=== PATIENT | female | born 1990 | race Caucasian/White ===

== ENCOUNTER 2019-05-21 22:33 | Inpatient (IN) ==
[2019-05-21 22:56] LABS: Appearance Urine Cloudy (Clear); Bacteria Urine Automated 1+ (Negative); Bilirubin Urine Negative (Negative); Blood Urine 1+ (Negative); Color Urine Yellow; Epithelial Cell Urine Auto >30 /lpf (0-5); Glucose Urine UA Negative (Negative); Ketones Urine Negative (Negative); Leukocyte Esterase Urine Trace (Negative); Nitrite Urine Negative (Negative); Protein Urine Negative (Negative); RBC Urine Automated 0-4 /hpf (0-4); Specific Gravity Urine 1.012 (1.000-1.030); Urobilinogen Urine Negative (Negative); pH Urine 5.5 (4.5-7.5)
[2019-05-21 23:11] LABS: Basophils # (auto) 0.03 K/uL (0-0.2); Basophils % (auto) 0.5 %; Eosinophils # (auto) 0.25 K/uL (0-0.5); Hematocrit (blood only) 41.5 % (37-47); Hemoglobin 14.1 g/dL (12.0-16.0); Lymphocytes # (auto) 1.35 K/uL (1.2-3.4); Lymphocytes % (auto) 21.6 %; Mean Corpuscular Hemoglobin 29.8 pg (25-34); Mean Corpuscular Volume 87.7 fL (80-100); Mean Platelet Volume 10.5 fL (7.4-10.4); Monocytes # (auto) 0.28 K/uL (0.11-0.59); Monocytes % (auto) 4.5 %; Neutrophils # (auto) 4.33 K/uL (1.4-6.5); Neutrophils % (auto) 69.4 %; Platelet Count 213 K/uL (130-400); RDW Coefficient of Variation 13.5 % (11.5-14.5); RDW Standard Deviation 43.9 fL (36.4-46.3); Red Blood Count 4.73 M/uL (4.2-5.4); White Blood Count 6.24 K/uL (4.8-10.8)
[2019-05-21 23:14] LABS: Amphetamines+Metham, Urine Neg (Neg); Barbiturates, Urine Neg (Neg); Benzodiazepine, Urine Neg (Neg); Cocaine, Urine Neg (Neg); MDMA (Ecstacy), Urine Neg (Neg); Methadone, Urine Neg (Neg); Opiate, Urine Neg (Neg); Phencyclidine, Urine Neg (Neg)
[2019-05-21 23:29] LABS: Calcium 9.1 mg/dl (8.5-10.1); Creatinine Clr Calc Pharmacy 81.4 ml/min; Est GFR (African American) 137.6; Est GFR (Non-African American) 118.7; Potassium 4.3 mmol/L (3.5-5.1)
[2019-05-21 23:39] LABS: Albumin Globulin Ratio 1.1 (0.9-2); Bilirubin,Total 0.7 mg/dl (0.2-1); Globulin 3.5 gm/dl (2.5-4.0); Thyroid Stimulating Hormone 1.91 uIu/ml (0.300-4.500); Total Protein 7.5 gm/dl (6.4-8.2)
[2019-05-21 23:56] LABS: Acetaminophen < 2 ug/ml (10-30); Salicylate < 1.7 mg/dl (2.8-20)
[2019-05-22] MEDS ORDERED: ACETAMINOPHEN 500 MG TAB PO STA (03:49)
--- NOTE | 2019-05-22 04:31 | Emergency Department Note ---
Entered by Iris Weaver acting as a scribe for Erin Valencia DO History of Present Illness General Chief complaint: Mental Health Evaluation Stated complaint: SELF HARM Time Seen by Provider: 05/21/19 22:59 Source: patient History of Present Illness Provider complaint: mental health evaluation Onset (ago): hour(s) less than 1 Location: head Radiation: non-radiation Pain Consistency: + constant Quality: + other (mental health ) Relieved By: + none Exacerbated By: + other (spine pain) Associated symptoms: + denies other symptoms The patient is a 28 y/o female who presents to the emergency department for a mental health evaluation. The patient states that she wanted to kill herself for the past couple of days but trina was digging her nails into the back of her neck prior to arrival in a suicide attempt. The patient reports that she has severe depression and PTSD. She notes that she has issues with her spine curving which is causing her a lot of pain. The patient states that her primary care doctor placed her on Cymbalta to help with the pain and the depression but she does not believe it is helping. She reports that she is upset because the pain and spine condition is getting worse and that she wants to end it before it becomes unbearable. Admits to thoughts of suicide. No prior attempt. The patient denies any other symptoms. Home Medications Home Medications Medication Instructions Recorded Confirmed Type duloxetine [Cymbalta] 20 mg PO BID 05/21/19 05/21/19 History Allergies Allergy/AdvReac Type Severity Reaction Status Date / Time No Known Allergies Allergy Verified 05/11/19 22:44 Past Med/Surg History Medical History Anxiety Surgical History No pertinent past surgical history Social History Preferred Language: Maori Communication Ability: Effective Cooking Teacher Required: No Beliefs That Will Affect Care: None Feels Safe at Home: Yes Smoking Status: Never smoker Review of Systems See HPI for pertinent positives & negatives. and A total of 10 systems reviewed and were otherwise negative Physical Exam Vital Signs Vital Signs - 24 hr 05/21/19 22:38 Temperature 36.8 C Temperature Source Oral Pulse Rate 91 H Respiratory Rate 20 Blood Pressure 134/91 Blood Pressure Mean 105 Blood Pressure Position Sitting Pulse Oximetry 99 Sepsis Recent Fever Within 48 Hours No Sepsis New/Unexplained Change in Mental Status No Sepsis Action Taken by Nursing No Action Required GENERAL: alert, well appearing, well nourished, no distress, non-toxic EYE EXAM: normal conjunctiva, PERRL and EOM's grossly intact OROPHARYNX: no exudate, no erythema, lips, buccal mucosa, and tongue normal and mucous membranes are moist NECK: supple, no nuchal rigidity, no adenopathy, non-tender LUNGS: Clear to auscultation. Normal chest wall mechanics, no w/r/r HEART: no murmurs, S1 normal and S2 normal ABDOMEN: abdomen soft, non-tender, normo-active bowel sounds, no masses, no rebound or guarding. BACK: Back is symmetrical on inspection and there is no deformity, no midline tenderness, no CVA tenderness. SKIN: no rashes and no bruising UPPER EXTREMITIES: upper extremities are grossly normal. FROM, nml pulses b/l. LOWER EXTREMITIES: No pitting edema. FROM, nml pulses b/l. NEURO EXAM: Normal sensorium, cranial nerves II-XII intact, normal speech, no weakness of arms, no weakness of legs. Course Course 230: Past medical records reviewed. The patient was evaluated in room A05. A complete history and physical exam was performed. 0100: The patient was evaluated by psychiatric case sealer. 0200: The patient was transferred to [address] [place] [address]. Administered Medications Discontinued Medications Acetaminophen (Tylenol) 1,000 mg PO NOW STA Stop: 05/22/19 03:50 Last Admin: 05/22/19 03:53 Dose: 1,000 mg Documented by: [id number] Medical Decision Making Differential Diagnosis differential includes toxic ingestions, self-mutilation, suicidal ideation, suicide attempt, depression. Medical Records Attestation: I reviewed the patient's medical records. Home Medications Current Medication List: was personally reviewed by me Laboratory Data Attestation: I reviewed the patient's lab results. Result diagrams: 05/21/19 22:55 05/21/19 22:55 Lab Results 05/21/19 05/21/19 05/21/19 Range/Units 22:55 22:55 22:55 WBC 6.24 (4.8-10.8) K/uL RBC 4.73 (4.2-5.4) M/uL Hgb 14.1 (12.0-16.0) g/dL Hct 41.5 (37-47) % MCV 87.7 (80-100) fL MCH 29.8 (25-34) pg MCHC 34.0 (32-36) g/dL RDW Std Deviation 43.9 (36.4-46.3) fL RDW Coeff of Wilfred 13.5 (11.5-14.5) % Plt Count 213 (130-400) K/uL MPV 10.5 H (7.4-10.4) fL Immature Gran % (Auto) 0.0 % Neut % (Auto) 69.4 % Lymph % (Auto) 21.6 % [place] % (Auto) 4.5 % Eos % (Auto) 4.0 % Baso % (Auto) 0.5 % Immature Gran # (Auto) 0.00 (0.00-0.02) K/uL Neut # (Auto) 4.33 (1.4-6.5) K/uL Lymph # (Auto) 1.35 (1.2-3.4) K/uL [place] # (Auto) 0.28 (0.11-0.59) K/uL Eos # (Auto) 0.25 (0-0.5) K/uL Baso # (Auto) 0.03 (0-0.2) K/uL Sodium 140 (136-145) mmol/L Potassium 4.3 (3.5-5.1) mmol/L Chloride 107 (98-107) mmol/L Carbon Dioxide 30 (21-32) mmol/L Anion Gap 3.0 (3-11) BUN 10 (7-18) mg/dl Creatinine 0.70 (0.6-1.2) mg/dl Est Cr Clr Drug Dosing 81.4 ml/min Est GFR ( Amer) 137.6 Est GFR (Non-Af Amer) 118.7 BUN/Creatinine Ratio 14.0 (10-20) Glucose 101 H (70-99) mg/dl Calcium 9.1 (8.5-10.1) mg/dl Total Bilirubin 0.7 (0.2-1) mg/dl AST 19 (15-37) U/L ALT 39 (12-78) U/L Alkaline Phosphatase 94 (45-117) U/L Total Protein 7.5 (6.4-8.2) gm/dl Albumin 4.0 (3.4-5.0) gm/dl Globulin 3.5 (2.5-4.0) gm/dl Albumin/Globulin Ratio 1.1 (0.9-2) TSH 1.910 (0.300-4.500) uIu/ml Urine Color Urine Appearance (Clear) Urine pH (4.5-7.5) Ur Specific Preston (1.000-1.030) Urine Protein (Negative) Urine Glucose (UA) (Negative) Urine Ketones (Negative) Urine Blood (Negative) Urine Nitrite (Negative) Urine Bilirubin (Negative) Urine Urobilinogen (Negative) Ur Leukocyte Esterase (Negative) Urine WBC (Auto) (0-5) /hpf Urine RBC (Auto) (0-4) /hpf U Hyaline Cast (Auto) (0-5) /lpf U Epithel Cells (Auto) (0-5) /lpf Urine Bacteria (Auto) (Negative) POC Ur Test (NEG) Salicylates < 1.7 L (2.8-20) mg/dl Urine Opiates Screen (Neg) Ur Methadone, Qual (Neg) Acetaminophen < 2 L (10-30) ug/ml Urine Barbiturates (Neg) Ur Phencyclidine (PCP) (Neg) U Amphetamin/Meth Scrn (Neg) MDMA (Ecstasy) Screen (Neg) U Benzodiazepines Scrn (Neg) Ur Cocaine Metabolite (Neg) U Marijuana (THC) Screen (Neg) Ethyl Alcohol mg/dL (0-3) mg/dl 05/21/19 05/21/19 05/21/19 Range/Units 22:55 Unknown Unknown WBC (4.8-10.8) K/uL RBC (4.2-5.4) M/uL Hgb (12.0-16.0) g/dL Hct (37-47) % MCV (80-100) fL MCH (25-34) pg MCHC (32-36) g/dL RDW Std Deviation (36.4-46.3) fL RDW Coeff of Wilfred (11.5-14.5) % Plt Count (130-400) K/uL MPV (7.4-10.4) fL Immature Gran % (Auto) % Neut % (Auto) % Lymph % (Auto) % [place] % (Auto) % Eos % (Auto) % Baso % (Auto) % Immature Gran # (Auto) (0.00-0.02) K/uL Neut # (Auto) (1.4-6.5) K/uL Lymph # (Auto) (1.2-3.4) K/uL [place] # (Auto) (0.11-0.59) K/uL Eos # (Auto) (0-0.5) K/uL Baso # (Auto) (0-0.2) K/uL Sodium (136-145) mmol/L Potassium (3.5-5.1) mmol/L Chloride (98-107) mmol/L Carbon Dioxide (21-32) mmol/L Anion Gap (3-11) BUN (7-18) mg/dl Creatinine (0.6-1.2) mg/dl Est Cr Clr Drug Dosing ml/min Est GFR ( Amer) Est GFR (Non-Af Amer) BUN/Creatinine Ratio (10-20) Glucose (70-99) mg/dl Calcium (8.5-10.1) mg/dl Total Bilirubin (0.2-1) mg/dl AST (15-37) U/L ALT (12-78) U/L Alkaline Phosphatase (45-117) U/L Total Protein (6.4-8.2) gm/dl Albumin (3.4-5.0) gm/dl Globulin (2.5-4.0) gm/dl Albumin/Globulin Ratio (0.9-2) TSH (0.300-4.500) uIu/ml Urine Color Urine Appearance (Clear) Urine pH (4.5-7.5) Ur Specific Preston (1.000-1.030) Urine Protein (Negative) Urine Glucose (UA) (Negative) Urine Ketones (Negative) Urine Blood (Negative) Urine Nitrite (Negative) Urine Bilirubin (Negative) Urine Urobilinogen (Negative) Ur Leukocyte Esterase (Negative) Urine WBC (Auto) (0-5) /hpf Urine RBC (Auto) (0-4) /hpf U Hyaline Cast (Auto) (0-5) /lpf U Epithel Cells (Auto) (0-5) /lpf Urine Bacteria (Auto) (Negative) POC Ur Test NEG (NEG) Salicylates (2.8-20) mg/dl Urine Opiates Screen Neg (Neg) Ur Methadone, Qual Neg (Neg) Acetaminophen (10-30) ug/ml Urine Barbiturates Neg (Neg) Ur Phencyclidine (PCP) Neg (Neg) U Amphetamin/Meth Scrn Neg (Neg) MDMA (Ecstasy) Screen Neg (Neg) U Benzodiazepines Scrn Neg (Neg) Ur Cocaine Metabolite Neg (Neg) U Marijuana (THC) Screen Neg (Neg) Ethyl Alcohol mg/dL < 3.0 (0-3) mg/dl 05/21/19 Range/Units Unknown WBC (4.8-10.8) K/uL RBC (4.2-5.4) M/uL Hgb (12.0-16.0) g/dL Hct (37-47) % MCV (80-100) fL MCH (25-34) pg MCHC (32-36) g/dL RDW Std Deviation (36.4-46.3) fL RDW Coeff of Wilfred (11.5-14.5) % Plt Count (130-400) K/uL MPV (7.4-10.4) fL Immature Gran % (Auto) % Neut % (Auto) % Lymph % (Auto) % [place] % (Auto) % Eos % (Auto) % Baso % (Auto) % Immature Gran # (Auto) (0.00-0.02) K/uL Neut # (Auto) (1.4-6.5) K/uL Lymph # (Auto) (1.2-3.4) K/uL [place] # (Auto) (0.11-0.59) K/uL Eos # (Auto) (0-0.5) K/uL Baso # (Auto) (0-0.2) K/uL Sodium (136-145) mmol/L Potassium (3.5-5.1) mmol/L Chloride (98-107) mmol/L Carbon Dioxide (21-32) mmol/L Anion Gap (3-11) BUN (7-18) mg/dl Creatinine (0.6-1.2) mg/dl Est Cr Clr Drug Dosing ml/min Est GFR ( Amer) Est GFR (Non-Af Amer) BUN/Creatinine Ratio (10-20) Glucose (70-99) mg/dl Calcium (8.5-10.1) mg/dl Total Bilirubin (0.2-1) mg/dl AST (15-37) U/L ALT (12-78) U/L Alkaline Phosphatase (45-117) U/L Total Protein (6.4-8.2) gm/dl Albumin (3.4-5.0) gm/dl Globulin (2.5-4.0) gm/dl Albumin/Globulin Ratio (0.9-2) TSH (0.300-4.500) uIu/ml Urine Color Yellow Urine Appearance Cloudy A (Clear) Urine pH 5.5 (4.5-7.5) Ur Specific Preston 1.012 (1.000-1.030) Urine Protein Negative (Negative) Urine Glucose (UA) Negative (Negative) Urine Ketones Negative (Negative) Urine Blood 1+ H (Negative) Urine Nitrite Negative (Negative) Urine Bilirubin Negative (Negative) Urine Urobilinogen Negative (Negative) Ur Leukocyte Esterase Trace H (Negative) Urine WBC (Auto) 5-10 H (0-5) /hpf Urine RBC (Auto) 0-4 (0-4) /hpf U Hyaline Cast (Auto) 1-5 (0-5) /lpf U Epithel Cells (Auto) >30 H (0-5) /lpf Urine Bacteria (Auto) 1+ H (Negative) POC Ur Test (NEG) Salicylates (2.8-20) mg/dl Urine Opiates Screen (Neg) Ur Methadone, Qual (Neg) Acetaminophen (10-30) ug/ml Urine Barbiturates (Neg) Ur Phencyclidine (PCP) (Neg) U Amphetamin/Meth Scrn (Neg) MDMA (Ecstasy) Screen (Neg) U Benzodiazepines Scrn (Neg) Ur Cocaine Metabolite (Neg) U Marijuana (THC) Screen (Neg) Ethyl Alcohol mg/dL (0-3) mg/dl Blood Pressure Blood Pressure Findings: Elevated blood pressure Blood Pressure Disposition: Referred to patients primary care provider MDM Narrative Patient here admitting to depression, suicidal ideation and attempt. Patient with longstanding history of depression per her report. Patient otherwise well- appearing here, no obvious injuries or trauma noted to neck. Patient's vital signs stable. Patient seen and evaluated and referred to 3 S. Patient accepted and admitted to 3 S. Impression & Plan Depressed, Suicidal ideation Discharge Plan Visit Data *Final* Discharge Date/Time: 05/22/19 04:49 Chief Complaint: Mental Health Evaluation Stated Complaint: SELF HARM ED Provider: Erin Valencia Discharge Problem: Depressed, Suicidal ideation Patient Disposition: Admitted As Inpatient Discharge Instructions Interventions: ED Discharge Assessment Last Done: 05/22/19 04:49 Discharge Problem: Depressed Qualifiers: Depression Type: unspecified Qualified Code(s): F32.9 - Major depressive disorder, single episode, unspecified The scribe's documentation has been prepared under my direction and personally reviewed by me in its entirety. I confirm that the note above accurately reflects all work, treatment, procedures, and medical decision making performed by me.
[2019-05-22] MEDS ORDERED: SODIUM CHLORIDE 0.65% NA SOLN 45 ML (OCEAN) PRN (04:36)
[2019-05-22] MEDS ORDERED: ALUMINUM/MAGNESIUM SUSP 30 ML UDC PO PRN (04:36)
[2019-05-22] MEDS ORDERED: BISMUTH SUBSALICYLATE PER ML OMNICELL CHARGE PO PRN (04:36)
[2019-05-22] MEDS ORDERED: MAGNESIUM HYDROXIDE SUSP 30 ML UDC PO PRN (04:36)
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
[2019-05-22] MEDS: DULOXETINE HCL 20 MG CAP PO SCH (11:30)
[2019-05-23] MEDS: DULOXETINE HCL 20 MG CAP PO SCH (09:04)
[2019-05-23] MEDS: ACETAMINOPHEN 325 MG TAB PO PRN ×2 (09:09→20:02)
[2019-05-23] MEDS ORDERED: TRAZODONE HCL 50 MG TAB PO PRN (11:44)
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
[2019-05-23] MEDS: CYCLOBENZAPRINE HCL 10 MG TAB PO PRN (21:59)
[2019-05-24] MEDS: DULOXETINE HCL 20 MG CAP PO SCH (09:07)
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
[2019-05-24] MEDS: CYCLOBENZAPRINE HCL 10 MG TAB PO PRN (21:46)
[2019-05-25] MEDS: ACETAMINOPHEN 325 MG TAB PO PRN (06:25)
[2019-05-25] MEDS: DULOXETINE HCL 20 MG CAP PO SCH (08:46)
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
== END 2019-05-25 12:30 | disposition home or self-care (01) | DRG 881 ==
LOC: ED 22:33 → 3S 05-22 04:36

== ENCOUNTER 2021-01-14 15:10 | Inpatient (IN) ==
[2021-01-14] MEDS ORDERED: ACETAMINOPHEN 325 MG TAB PO PRN ×2 (16:42→18:17)
[2021-01-14] MEDS ORDERED: LACTATED RINGER'S 1,000 ML IV ONE (16:43)
[2021-01-14] MEDS ORDERED: OXYTOCIN 30 UNITS/500 ML BAG IV PRN ×2 (17:02→18:17)
[2021-01-14] MEDS ORDERED: LACTATED RINGER'S 1,000 ML IV PRN (17:02)
[2021-01-14] MEDS ORDERED: BUTORPHANOL TARTRATE 1 MG/ML VIAL IV ONE (17:12)
[2021-01-14] MEDS ORDERED: BUTORPHANOL TARTRATE 1 MG/ML VIAL ONE (17:13)
--- NOTE | 2021-01-14 17:23 | History & Physical Report ---
Date of Service January 14, 2021 Assessment & Plan (1) 37 weeks gestation of : Plan: Admit, routine labs, Stadol for pain control (2) Thick meconium stained amniotic fluid: Plan: Will update peds (3) Chronic migraine w/o aura w/o status migrainosus, not intractable: (4) Hereditary hemorrhagic telangiectasia: Plan: followed by M, monthly CBC, declined genetic consult, growth q4-6 weeks (5) History of seizure: Plan: Last seizure over 1 year ago, not currently on Keppra (6) GDM (gestational diabetes mellitus): Plan: Hourly BG check (7) Antepartum anemia complicating : Plan: Admission H/H pending Received IV iron transfusions in (8) Depression affecting in third trimester, antepartum: Plan: Continue home meds as needed (9) Degenerative disc disease: (10) Depression: (11) Moderate persistent allergic asthma: (12) ROSLYN (obstructive sleep apnea): Plan: Admit, routine labs, pain control Anticpate Admission and Anticipated Discharge Date Admission Date: 01/14/2021 History of Present Illness Chief Complaint: Contractions, LOF Primary Care Provider: Viola Naranjo MD Patient is 30 year old at 37 0/7 weeks dated by 7 week US who was sent from clinic for ongoing contraction pain. Started last night and was evaluated on LD and sent home at 1cm dilated. In clinic pain was worse and was 3 cm dila oumou. Today on LD 3-4 cm and SROM with thick med at 1438. +FM. Denies vaginal bleeding Denies headache, BV, RUQ or epigastric pain. Otherwise feeling well. Pain 9/10 Started care at 7 weeks and had 15 visits Managed by [facility] this for hereditary hemorrhagic telangiectasia, GDM (diet controlled), antepartum anemia Allergies Allergy/AdvReac Type Severity Reaction Status Date / Time bee venom protein (honey bee) Allergy Severe EXTREME Verified 12/20/20 19:47 SWELLING OF SITE. cephalexin [From Keflex] Allergy Severe STOPS Verified 12/20/20 19:47 BREATHING lurasidone [From Latuda] Allergy Severe STOPS Verified 12/20/20 19:47 BREATHING ragweed pollen Allergy Unknown HAPPENED Verified 12/20/20 19:47 A CHILD, CAN'T REMEMBER Home Medications Medication Instructions Recorded Confirmed Type loratadine 10 mg tablet (Claritin) 1 mg PO DAILY 09/26/20 01/14/21 History sertraline 50 mg tablet (Zoloft) 100 mg PO DAILY 11/21/20 01/14/21 History acetaminophen 325 mg tablet 650 mg PO Q4H PRN 12/13/20 01/14/21 History prenat.vits,shima,enn-wxps-gbmgy 1 tab PO DAILY 12/13/20 01/14/21 History docusate sodium 100 mg capsule 100 mg PO TID 01/14/21 01/14/21 History fluticasone propionate 50 1 spray INTRANASAL DAILY 01/14/21 01/14/21 History mcg/actuation nasal spray,suspension ondansetron HCl 8 mg tablet 8 mg PO DAILY 01/14/21 01/14/21 History Past Med/Surg History Medical History Anxiety Degenerative disc disease Depression pt states she sees therapist - started on Zoloft Hereditary hemorrhagic telangiectasia delivery 24wks 2010, twins at 36wks 2014 Spontaneous vaginal delivery 40wks 2012, 40wks 2017 Surgical History No pertinent past surgical history Family History Grandfather (Maternal) No problems noted. Grandmother (Maternal) Lung cancer Mental disorder Mother Blood disorder Myocardial infarction Hypertension Father Diabetes Sister Mental disorder Daughter Seizures Social History Smoking Status: Never smoker Tobacco Type: Cigarettes Second Hand Exposure: No; Do You Dip or Chew Tobacco: No; Tobacco Cessation Education Requested by Patient: No Hx Alcohol Use: No Hx Substance Use: No Preferred Language: Egyptian Communication Ability: Effective Lard Mixer Required: No Beliefs That Will Affect Care: None marital status: Current Living Situation: Spouse Current Living Situation Comment: Lives with and roomate Other Information That Helps Us Care for You: No Feels Safe at Home: Yes Safety Concerns: Feels Safe At This Time Assistive Devices: Glasses Assistive Devices Comment: Wears glasses Review of Systems Constitutional: as per Subjective / HPI Ear, Nose, Mouth, Throat: as per Subjective / HPI Respiratory: as per Subjective / HPI Cardiovascular: as per Subjective / HPI Gastrointestinal: as per Subjective / HPI Genitourinary: as per Subjective / HPI and + pelvic pain Musculoskeletal: as per Subjective / HPI Physical Exam Constitutional: WD/WN, vitals as above Respiratory: normal respiratory effort, lungs clear to auscultation Cardiovascular: RRR, no murmur, no edema Gastrointestinal (Abdomen): normal bowel sounds, soft, nontender, no hepatosplenomegaly gravid Skin: no rashes, warm and dry Neurologic: patellar DTR's 2+ bilat, sensation intact and PERRL, EOMI, accommodation nl, no face palsy, no dysarthria Psychiatric: A+Ox3, euthymic affect Genitourinary: normal external appearance cx 4/80/-2 thick med, no cord felt, sutures felt-cephalic on exam Results & Data Results & Data ([facility]) Vital Signs (Past 12 Hours) Vital Signs Temp Pulse Resp BP 01/14/21 16:09 96 H 121/86 01/14/21 16:02 36.5 C 96 H 18 121/86 Laboratory Results Pending (1) Degenerative disc disease Spinal region: lumbar Qualified Code(s): M51.36 - Other intervertebral disc degeneration, lumbar region (2) Depression Depression Type: unspecified Qualified Code(s): F32.9 - Major depressive disorder, single episode, unspecified
[2021-01-14 17:54] LABS: Hematocrit (blood only) 40.4 % (37-47); Mean Corpuscular Hemoglobin 27.9 pg (25-34); Mean Corpuscular Hgb Conc 32.2 g/dL (32-36); Mean Corpuscular Volume 86.7 fL (80-100); Mean Platelet Volume 10.4 fL (7.4-10.4); Platelet Count 166 K/uL (130-400); RDW Coefficient of Variation 19.7 % (11.5-14.5); RDW Standard Deviation 62.1 fL (36.4-46.3); Red Blood Count 4.66 M/uL (4.2-5.4); White Blood Count 12.93 K/uL (4.8-10.8)
[2021-01-14] MEDS ORDERED: BENZOCAINE 20% AER SPR 82.5 GM CAN EXT PRN (18:17)
[2021-01-14] MEDS ORDERED: SUPERCREAM 0.870% 15 GM JAR EXT PRN (18:17)
[2021-01-14] MEDS ORDERED: DIPHTHERIA/TETANUS/PERTUSSIS 0.5 ML SYR/VIAL IM ONE (18:17)
[2021-01-14] MEDS ORDERED: bisacodyL 10 MG SUPP PR PRN (18:17)
[2021-01-14] MEDS ORDERED: HYDROCORTISONE ACETATE 25 MG SUPP PR PRN (18:17)
--- NOTE | 2021-01-14 18:25 | Delivery Summary ---
Vaginal Delivery Summary Date of Service January 14, 2021 Vaginal Delivery Summary Called by nurse for urge to push with ant lip. Patient was checked and found to be complete +1 station. On next contraction, patient pushed at +3 station. Placed in dorsal lithotomy position, head delivered atraumatically followed by anterior shoulder, and posterior shoulder and remainder of body. placed on mothers abdomen, dried and stimulated. Nose and mouth suctioned. Cord was clamped x2 and cut. Handed to nursing staff. A female delivered at 1608 with APGARs7/8, weight pending with cord wrapped around infant left leg x1. Cord blood obtained. Placenta delivered intact with 3 vessel cord. Placenta was not sent to pathology. 20 units of oxytocin was added to IV fluids. Uterine massage was performed until uterus was firm. Upon inspection, vagina, cervix and perineum were all intact. Sponge counts correct x2. EBL 300mls Patient was stable and allowed to recover in L+D room. stable and remained in room with mother
[2021-01-15] MEDS: IBUPROFEN 600 MG TAB PO PRN ×4 (04:29→20:04)
[2021-01-15 05:58] LABS: Hematocrit (blood only) 36.9 % (37-47); Hemoglobin 11.9 g/dL (12.0-16.0); Mean Corpuscular Hemoglobin 27.5 pg (25-34); Mean Corpuscular Hgb Conc 32.2 g/dL (32-36); Mean Corpuscular Volume 85.4 fL (80-100); Mean Platelet Volume 10.9 fL (7.4-10.4); Platelet Count 167 K/uL (130-400); RDW Coefficient of Variation 19.3 % (11.5-14.5); RDW Standard Deviation 60.7 fL (36.4-46.3); Red Blood Count 4.32 M/uL (4.2-5.4); White Blood Count 12.19 K/uL (4.8-10.8)
[2021-01-15] MEDS: PRENATAL VITAMIN 1 TAB PO SCH (09:28)
[2021-01-15] MEDS: DOCUSATE SODIUM 100 MG CAP PO SCH ×2 (09:28→20:04)
[2021-01-15] MEDS: SERTRALINE HCL 100 MG TABLET PO SCH (09:29)
[2021-01-15] MEDS: LORATADINE 10 MG TAB PO SCH (09:29)
[2021-01-15] MEDS: FLUTICASONE PROPIONATE NA SPR 16 GM BTL SCH (09:30)
--- NOTE | 2021-01-15 10:30 | Obstetrical Progress Note ---
Date of Service January 15, 2021 Assessment & Plan (1) Normal course: PPD #1 pt doing well No complaints will d/c home tomorrow Subjective Ambulation: ambulating normally Voiding: no voiding problems Passing Gas:: Yes Diet Tolerance:: regular diet Lochia:: Small Feeding Type:: breast feeding Review of Systems All systems reviewed & are unremarkable except as noted in HPI & below Physical Exam Constitutional WD/WN, vitals as above well developed and well nourished Eyes PERRL, conjunctivae normal, anicteric sclerae Neck trachea midline, no thyromegaly Respiratory normal respiratory effort, lungs clear to auscultation Auscultation: no crackles, no rales and no wheezes Cardiovascular RRR, no murmur, no edema Gastrointestinal (Abdomen) normal bowel sounds, soft, nontender, no hepatosplenomegaly Uterus is below umbilicus Musculoskeletal no cyanosis or clubbing, extremities motor strength 5/5 Skin no rashes, warm and dry Neurologic patellar DTR's 2+ bilat, sensation intact Psychiatric A+Ox3, euthymic affect Genitourinary normal external appearance Results & Data ([facility]) Vital Signs (Past 12 Hours) Vital Signs Temp Pulse Resp BP Pulse Ox 01/15/21 07:35 36.8 C 83 16 97/61 L 97 01/14/21 23:15 36.9 C 83 18 110/73
[2021-01-15] MEDS ORDERED: bisacodyL 5 MG TABEC PO SCH (20:00)
[2021-01-16 07:09] LABS: Hematocrit (blood only) 35.8 % (37-47); Hemoglobin 11.4 g/dL (12.0-16.0)
[2021-01-16] MEDS: DOCUSATE SODIUM 100 MG CAP PO SCH (09:22)
[2021-01-16] MEDS: FLUTICASONE PROPIONATE NA SPR 16 GM BTL SCH (09:22)
[2021-01-16] MEDS: SERTRALINE HCL 100 MG TABLET PO SCH (09:23)
[2021-01-16] MEDS: LORATADINE 10 MG TAB PO SCH (09:23)
[2021-01-16] MEDS: IBUPROFEN 600 MG TAB PO PRN (09:23)
[2021-01-16] MEDS: PRENATAL VITAMIN 1 TAB PO SCH (09:23)
--- NOTE | 2021-01-16 11:28 | Obstetrical Progress Note ---
Date of Service January 16, 2021 Assessment & Plan (1) Normal course: PPD #2 pt doing well Seen by psychiatric social worker d/c home with instructions Subjective Ambulation: ambulating normally Voiding: no voiding problems Passing Gas:: Yes Diet Tolerance:: regular diet Lochia:: Small Feeding Type:: breast feeding Review of Systems All systems reviewed & are unremarkable except as noted in HPI & below Physical Exam Constitutional WD/WN, vitals as above well developed and well nourished Eyes PERRL, conjunctivae normal, anicteric sclerae Neck trachea midline, no thyromegaly Respiratory normal respiratory effort, lungs clear to auscultation Auscultation: no crackles, no rales and no wheezes Cardiovascular RRR, no murmur, no edema Gastrointestinal (Abdomen) normal bowel sounds, soft, nontender, no hepatosplenomegaly Uterus is below umbilicus Musculoskeletal no cyanosis or clubbing, extremities motor strength 5/5 Skin no rashes, warm and dry Neurologic patellar DTR's 2+ bilat, sensation intact Psychiatric A+Ox3, euthymic affect Genitourinary normal external appearance Results & Data ([facility]) Vital Signs (Past 12 Hours) Vital Signs Temp Pulse Resp BP Pulse Ox 01/16/21 07:25 36.5 C 75 20 106/71 97 01/15/21 23:30 36.7 C 74 16 115/66
== END 2021-01-16 13:35 | disposition home or self-care (01) | DRG 805 ==
LOC: OPB 15:10 → 4S1 15:11 → 4S2 21:11
DX: O99.42 Diseases of the circulatory system complicating childbirth; O99.52 Diseases of the respiratory system complicating childbirth; I78.0 Hereditary hemorrhagic telangiectasia; F32.9 Major depressive disorder, single episode, unspecified; J45.909 Unspecified asthma, uncomplicated; G43.719 Chronic migraine without aura, intractable, without status migrainosus; Z3A.37 37 weeks gestation of pregnancy; O26.891 Other specified pregnancy related conditions, first trimester; O77.0 Labor and delivery complicated by meconium in amniotic fluid; M51.36 Other intervertebral disc degeneration, lumbar region; O99.354 Diseases of the nervous system complicating childbirth; Z37.0 Single live birth; O99.343 Other mental disorders complicating pregnancy, third trimester; O24.410 Gestational diabetes mellitus in pregnancy, diet controlled; O99.013 Anemia complicating pregnancy, third trimester